=== PATIENT | male | born 1995 | race Caucasian/White ===

== ENCOUNTER → 2017-02-27 | Outpatient (CLI) | payer BC, OTHER ==
--- NOTE | 2017-03-02 10:00 | CPEEG ---
[f rep st] ELECTROENCEPHALOGRAM DATE OF STUDY: 02/27/2017 DATE OF INTERPRETATION: 03/02/2017. INTERPRETATION: This 4-hour video EEG recording is normal. There were no potentially epileptogenic abnormalities present during the awake or drowsy recordings. During the video EEG monitoring session, the patient did not have any clinical events. REPORT: This 4-hour video EEG contains 10 Hz alpha activity to the posterior head regions. The patient's background activity was essentially normal. There was a prominent mu rhythm between 9 and 10 Hz, maximal over the left central head region. This is a normal background finding. There was no abnormal activation at rest, or photic stimulation. This was a technically difficult study due to the patient's agitation, and this resulting in himself removing all the electrodes, which had to be replaced. This episode did produce some significant artifact before and after. However, an adequate amount of data was recorded. He did not fall asleep during the study. There was no abnormal activation during brief drowsiness or during times of arousal. The patient did not have any clinical events during the video EEG monitoring session. /[id number]/MODL MTDD
== END ==
LOC: FCPNEURO 09:11
PROVIDERS: ATTEND Psychiatry & Neurology Neurology
DX: R56.9 Unspecified convulsions (principal)